=== PATIENT | male | born 1955 | race Hispanic/Latino ===

== ENCOUNTER → 2024-06-03 | Outpatient (CLI) | payer OTHER ==
[~2024-06-03] MED LIST: APIX5TAB PO; ASPI-1197 PO; ATOR40TA71 PO; CHOL200059 PO; CYAN-35 PO; IOHEXOL 350 MG/ML 100ML INFUS..BTL IV ONE; METO25 PO; PANT40TA54 PO; TAMS-55 PO
--- NOTE | 2024-06-03 11:32 | HMCIMG ---
CT ABDOMEN WITHOUT AND WITH CONTRAST. CT PELVIS WITHOUT AND WITH CONTRAST INDICATION: Unspecified urinary incontinence TECHNIQUE: Routine transaxial images at 5 mm slice thickness were obtained prior to the administration of contrast material through the abdomen only, and after the intravenous infusion of 100 mL of Omnipaque 350 through the abdomen and pelvis without adverse effects. Delayed images of the abdomen and pelvis were also obtained. Coronal and sagittal reformatted imaging acquired for interpretation. CT was performed with one or more of the following dose reduction techniques: Automated exposure control, adjustment of the mA and/or kV according to patient size, or use of iterative reconstruction technique. COMPARISON: 05/16/2024 FINDINGS: ABDOMEN: Heart size is normal. Visible lung bases are clear. The liver is normal in size and smooth in contour without lesions or biliary duct dilation. The spleen is normal in size without lesions. A few miniscule calcifications within the gallbladder lumen. The pancreas appears normal without pancreatic duct dilation. The adrenal glands appear normal. Both kidneys appear unremarkable. Cortical nephrograms are symmetric and normal in appearance bilaterally. No significant abdominal, retrocrural or retroperitoneal adenopathy noted.No evidence for intra-abdominal free air or organized fluid collection. No aortic aneurysmal dilation or dissection identified. PELVIS: Small anterior right thigh lipoma anterior to the proximal right rectus femoris muscle. No evidence for free air or organized pelvic fluid collection. No significant pelvic adenopathy detected. Several diverticula along the distal colon. Terminal ileum appears unremarkable. The appendix appears normal. Urinary bladder wall thickening is more than expected for empty urinary bladder. Visible osseous structures are intact. IMPRESSION: 1. Findings suggesting mild cystitis. Correlation with urine studies is recommended. 2. Cholelithiasis. 3. Distal colonic diverticulosis.
== END | disposition home or self-care (01) ==
LOC: RAH 08:15
PROVIDERS: ATTEND Internal Medicine
DX: D17.79 Benign lipomatous neoplasm of other sites (principal); K80.20 Calculus of gallbladder without cholecystitis without obstruction; K57.30 Diverticulosis of large intestine without perforation or abscess without bleeding; K82.8 Other specified diseases of gallbladder; N32.89 Other specified disorders of bladder; N28.89 Other specified disorders of kidney and ureter; R32 Unspecified urinary incontinence; N39.0 Urinary tract infection, site not specified
CPT/HCPCS: 74178; Q9967

== ENCOUNTER → 2025-01-07 | Outpatient (CLI) | payer OTHER ==
[~2025-01-07] MED LIST changes: -IOHEXOL 350 MG/ML 100ML INFUS..BTL IV ONE; +IOHEXOL-350 75 ML VIAL IV ONE
--- NOTE | 2025-01-07 20:47 | HMCIMG ---
EXAM: CT ABDOMEN WITH AND WITHOUT IV CONTRAST CLINICAL HISTORY: Non-alcoholic steatohepatitis. TECHNIQUE: Axial CT images of the abdomen were obtained before and after IV contrast administration in multiple phases. Multiplanar reconstructions. The protocol utilizes one or more of the following dose reduction techniques: automated exposure control, adjustment of mA and/or kV according to patient size, and/or use of iterative reconstruction technique. Total exam DLP is 3485 mGy x cm. IV Contrast: Administered. CONTRAST: IV Contrast: Administered. COMPARISON: None. FINDINGS: LOWER CHEST: There is a tiny 5 mm sized pleural based nodule in the posterior basal segment of the right lower lobe, series 2, image 5/73. No cardiomegaly or pericardial effusion observed. There are coronary arterial calcifications present. LIVER: The liver measures 16.3 cm. In the arterial phase images there is no enhancing focal or diffuse abnormality in the liver. Homogeneous. GALLBLADDER AND BILIARY TREE: Dependent hyperdensity is present in the gallbladder lumen, which may represent sludge or layered calculi. There is no gallbladder distension or wall edema. No intra- or extrahepatic biliary ductal dilation. PANCREAS: The pancreas is unremarkable. No focal cystic or solid mass. SPLEEN: The spleen is unremarkable. Normal size without focal cystic or solid mass. ADRENAL GLANDS: Both adrenals are unremarkable. KIDNEYS AND URETERS: Normal renal size and position. lobulations are present in both kidneys. There is a 8 x 5 mm sized non-enhancing exophytic renal cyst in the interpolar region of the right kidney anteriorly, series 5, image 35/73. Per consensus, no follow-up is needed for simple Bosniak type 1 renal cysts, unless the patient has a malignancy history or risk factors. Bilateral non-specific perinephric fat stranding is present. 7 minutes delayed urographic phase images demonstrate symmetric contrast excretion through the bilateral renal pelvicalyceal system without hydroureteronephrosis. There is no hydronephrosis. BOWEL: There is evidence of gastric bypass with gastrojejunal anastomosis appropriately positioned without anastomotic site leakage or obstruction. The appendix is unremarkable, series 2, image 50-64/73. A small amount of fecal material is present in the visualized colon. There are scattered colonic diverticula without diverticulitis. No stomach or bowel distension. No focal inflammatory change observed. LYMPH NODES: Not enlarged mesenteric or retroperitoneal lymph nodes. PERITONEUM: No ascites or free air. No other fluid collection. VESSELS: The abdominal aorta demonstrates atheromatous calcification without aneurysm or dissection. Aorta is non-dilated. ABDOMINAL WALL: No discrete abdominal or pelvic wall hernia observed. BONES: There are degenerative changes in the visualized thoracolumbar spine. Small central disc protrusions at L4-L5, L5-S1 levels causing thecal sac indentation. Multilevel facet arthropathy and disc degenerative disease in the lumbar spine is seen. No lytic or blastic abnormality observed. IMPRESSION: 1. No acute intra-abdominal process. 2. No hepatomegaly or fatty infiltration of liver evident on the CT scan. Further evaluation with US / MR elastography is recommended, if clinically concerning. 3. Possible gallbladder sludge or layered calculi. 4. Several stable chronic and incidental findings are noted, as detailed in the body of the report. /Ravinder
== END | disposition home or self-care (01) ==
LOC: RAH 07:51
PROVIDERS: ATTEND Internal Medicine Gastroenterology
DX: K75.81 Nonalcoholic steatohepatitis (NASH) (principal); K74.02 Hepatic fibrosis, advanced fibrosis; I70.0 Atherosclerosis of aorta; K56.41 Fecal impaction; N28.1 Cyst of kidney, acquired; M47.815 Spondylosis without myelopathy or radiculopathy, thoracolumbar region; M51.27 Other intervertebral disc displacement, lumbosacral region; M51.369 Other intervertebral disc degeneration, lumbar region without mention of lumbar back pain or lower extremity pain; R91.1 Solitary pulmonary nodule
CPT/HCPCS: 74170; Q9967